=== PATIENT | male | born 1995 | race Caucasian/White ===

== ENCOUNTER 2018-05-26 11:28 | Emergency (ER) | payer OTHER ==
--- NOTE | 2018-05-26 12:00 | EDPHY ---
General - History Smoking Status: Current some day smoker Time Seen by Provider: 05/26/18 11:59 Narrative: CLINICAL IMPRESSION: ACUTE ON CHRONIC LEFT KNEE PAIN ASSESSMENT/PLAN: 22-year-old male presents to the emergency department with acute on chronic left knee pain. Patient reports injuring the knee 7 months ago, never had MRI nor did he see Orthopedics. Patient re-injured the knee today, was advised by primary care and his insurance company to come to the emergency department for an MRI. X-ray show no acute fracture, bony abnormality or dislocation. Patient has intact neurovascular exam. No significant laxity with anterior drawer testing and mildly positive Daksha testing to valgus stress. I explained to the patient that we do not order emergent MRIs for orthopedic injuries in the emergency department. I did give him an orthopedic referral and offered knee immobilizer which he has declined. Rice treatment and over-the -counter recommendations for pain management reviewed. Warning signs return to ED sooner outlined and discharge. DIFFERENTIAL DX: Differential includes but not limited to acute fracture, strain/sprain, joint dislocation, soft tissue contusion ED PROCEDURES: Patient declined ED COURSE: X-rays reviewed by myself with no evidence of acute fracture or bony abnormality CHIEF COMPLAINT: Left knee pain HPI: 22-year-old otherwise healthy male presents to the emergency department with acute on chronic left knee pain. Patient reports injuring the knee 7 months ago , never saw an orthopedic provider, never had an MRI or x-rays. Today he reports having a "plant and twist injury" and thinks he aggravated the knee again. He reports a "sharp stabbing pain in the knee". No significant swelling. Patient reports he contacted his insurance company and was told to come to the emergency department for an MRI because it would be faster than going through primary care or Orthopedics. He reports no open wounds, numbness or loss of sensation to the leg, calf swelling erythema or warmth, fever or chills, or prior orthopedic injury to this leg. PAST MEDICAL HISTORY: None reported Pertinent Past Surgical History: None reported Social History: Otherwise healthy REVIEW OF SYSTEMS: All other systems negative Constitutional: No fever, no chills Musculoskeletal: No deformity, + joint pain Skin: No rashes, color change or open wounds. Neurological: No sensory loss or weakness. PHYSICAL EXAM: General Appearance: Alert, oriented, appropriate for age, cooperative, NAD, well hydrated, non-toxic appearing, VSS, no hypoxia. Neurological: Alert and oriented x 3, normal sensation and strength of extremities Skin: Warm, dry, no rashes, no nodules on palpation. Musculoskeletal: Full range of motion of left knee. No joint effusion. No laxity to anterior drawer testing. Mild pain to valgus stressing on Daksha test. Distal neurovascular exam intact. No ankle or femur pain. MEDICAL DECISION MAKING: Patient was seen independently. Secondary supervising physician at time of evaluation was Dr. Deshpande . Diagnosis: Acute on chronic left knee pain. New, requires workup Summary: See assessment and plan for summary of ED visit Independent visualization of images, tracing, or specimens yes. Patient Progress: Improved, stable for discharge. (Chris Batista) Medical Decision Making: I did not see this patient while he was in the emergency department. However his care was discussed with the PA while the patient was in the department. I agree with treatment plan and management (Keanu Deshpande) - Objective Vital Signs: Initial Vital Signs Temperature (C) 36.5 C 05/26/18 11:33 Heart Rate 65 05/26/18 11:33 Respiratory Rate 18 05/26/18 11:33 Blood Pressure 118/75 05/26/18 11:33 O2 Sat (%) 97 05/26/18 11:33 O2 Delivery Mode Room Air Allergies/Adverse Reactions: No Known Allergies Allergy (Verified 05/26/18 11:33) Home Medications: Medication Instructions Recorded NK [No Known Home Meds] 05/26/18 Departure - Departure Disposition: Home, Routine, Self-Care Clinical Impression: Knee pain, left Condition: Good Instructions: Knee Pain (ED) Additional Instructions: DISCHARGE INSTRUCTIONS FROM YOUR DOCTOR Thank you for visiting our emergency department today. You were treated by a physician assistant professor of biology today and your case was reviewed with our ED Attending physician. Please keep in mind that discharge from the emergency department does not mean that there is nothing wrong - it simply means that we have not identified an emergency condition that requires further evaluation or treatment in the hospital. You should always plan to follow up with primary care for re- evaluation of your condition in the next 2-3 days. If you have been referred to a specialist, please call as soon as possible (today or tomorrow) to schedule your follow up appointment at the appropriate time. PLEASE CONTACT THE ORTHOPEDIC PROVIDER TODAY TO LET THEM KNOW YOUR IN THE EMERGENCY DEPARTMENT AND NEED AN ORTHOPEDIC FOLLOW-UP. X-RAYS TODAY SHOW NO EVIDENCE OF ACUTE FRACTURE OR BONY ABNORMALITY. REST AND ELEVATE THE AFFECTED EXTREMITY MUCH POSSIBLE. ICE THE AFFECTED AREAS 20 MIN ON, 20 MIN OFF FOR THE NEXT SEVERAL DAYS. RETURN TO THE EMERGENCY DEPARTMENT FOR SEVERE PAIN, INABILITY TO AMBULATE, SEVERE JOINT SWELLING, LOSS OF SENSATION TO FOOT OR TOES , OR ANY OTHER CONCERN. People present with illnesses and injuries in different ways, and it is always possible that we have missed something. You may always return for re-evaluation if symptoms worsen or if they are not improving or if you develop new/different symptoms. Again, thank you for choosing our emergency department. We hope that you feel better. Referrals: Martín Church MD [Primary Care Provider] - As per Instructions Saravanan Payan MD [Medical Doctor] - 1-2 days without fail
[2018-05-26 13:08] VITALS: BP 133/68
== END 2018-05-26 13:07 | disposition home or self-care (01) ==
DX: M25.562 Pain in left knee (principal)